=== PATIENT | male | born 1955 | race Caucasian/White ===

== ENCOUNTER 2016-11-23 16:12 | Inpatient (IN) | payer MEDICARE, MEDICAID ==
[~2016-11-23] VITALS: Ht 175.3 cm; Wt 148.7 kg
[~2016-11-23 16:12] MED LIST: ALDACTONE DPS25 MG PO; ALDACTONE50 MG PO; ALOE VESTA141 GM TP; AUGMENTIN875 MG PO; BACTROBAN22 GM TP; BENTYL-DPS10 MG PO; BENTYL10 MG PO; CEFTIN DPS500 MG PO; CEFTIN250 MG PO; COLACE-DPS100 MG PO; CYCLOBENZAPRINE10 MG PO; DULCOLAX-DPS10 MG PR; ENULOSE10 GM/15 M PO; FLEXERIL-DPS10 MG PO; FLONASE 0.05% D16 GM NS; FLONASE 50 MCG NS; HYTONE-DPS 2.5%30 GM PR; LACTULOSE PO; LASIX DPS40 MG PO; LEVAQUIN500 MG PO; LIDEX TP; LIDODERM PATC1 PATCH TP; MARYS PO; MICRO-K DPS10 MEQ PO; MILK OF MAGNESI10 ML PO; MIRALAX PACKET17 GM PO; MUCINEX600 MG PO; NILSTAT SUSP DPS5 ML PO; NYSTATIN CREAM TP; NYSTATIN CREAM15 GM TP; NYSTATIN PO; NYSTATIN1 EAC1 TP; NYSTATIN100000 UNI PO; NYSTATIN60 GM TP; ONDANSETRON HCL4 MG PO; OXY IR DPS5 MG PO; PEPCID DPS20 MG PO; POTASSIUM CHLO20 ME1 PO; PRILOSEC20 MG PO; SENOKOT8.6 MG PO; SPIRONOLACTONE PO; SURFAK DPS240 MG PO; TYLENOL DPS325 MG PO; TYLENOL EXTRA500 M1 PO; VIBRAMYCIN-DPS100 M2 PO; XANAX DPS0.5 MG PO; XANAX0.25 MG PO; XOPENEX 45 MCG IH; XOPENEX HFA15 GM IH; XOPENEX0.31 MG/3 IH; XOPENEX0.63 MG/3 IH; ZOFRAN4 MG PO; ZOVIRAX 5% TP; ZOVIRAX5 GM TP; [UNRECOGNIZED DRUG - OTHER] IH; [UNRECOGNIZED DRUG - OTHER] TP
--- NOTE | 2016-11-25 15:48 | HP ---
ADMIT: 11/23/2016 RM/LOC: 418 [facility] MR#: [id number] [id number] [place], [place] [address] [address] CE[facility] [address] [place] [address] History and Physical SEX: M AGE: 60 : 1955 DATE OF SERVICE: CHIEF COMPLAINT: Fever, aches, and back pain. HISTORY OF PRESENT ILLNESS: The patient is a 60-year-old, chronically ill gentleman who has end-stage liver disease secondary to HILLMAN, diabetes who reports to the emergency room with increasing lumbar back pain. He has this chronically, but it is much worse today. He has generalized aches and malaise. Fever up to 103. No nausea. No vomiting. No diarrhea. No new rashes. No dysuria. No change in urination at all. No cough. No new headaches. No visual changes. He really has no idea what is causing his fever at this point in time. He has had various fevers and infections in the past. Chronic UTI in the past. Does not feel like this is the case at this time. PAST MEDICAL HISTORY: 1. End-stage liver disease secondary to HILLMAN. 2. Diabetes type 2. 3. Portal hypertension secondary to cirrhosis. 4. Pancytopenia secondary to portal hypertension. 5. Chronic hypoxemia. 6. Cor pulmonale. 7. Morbid obesity. 8. Chronic low back pain on chronic narcotics. 9. Hypertension. 10.Hepatic encephalopathy. 11.Anxiety. FAMILY HISTORY: Significant for diabetes. SOCIAL HISTORY: Lives at home with his . Nonsmoker. No alcohol use. MEDICATIONS: According to list he has, he is on: 1. Colace 100 mg daily. 2. Nystatin. 3. Spironolactone 25 mg. 4. Lasix 40 mg. 5. Potassium 10 mEq daily. It does not sound like he is taking it regularly. 6. Oxycodone 10 mg five times daily. 7. Ondansetron 4 mg every 6 hours as needed. 8. Bentyl 10 mg t.i.d. as needed. 9. Xopenex 2 puffs inhaled t.i.d. as needed. 10.Xanax 0.5 mg 1/2 tablet three times daily p.r.n. 11.Lactulose p.r.n., but he is not taking it. 12.Flexeril 10 mg at bedtime as needed. REVIEW OF SYSTEMS: As per HPI. Otherwise, completely reviewed and negative. ADMIT: 11/23/2016 RM/LOC: 418 [facility] MR#: [id number] [address] [address] KY[facility] CEJA [address] [place] [address] History and Physical SEX: M AGE: 60 : 1955 PHYSICAL EXAMINATION: VITAL SIGNS: Blood pressure 109/51, heart rate 80, respiratory rate 16, temperature 100.7, and O2 saturation 99% on room air. GENERAL: He is alert and oriented x3. A little bit lethargic and slow in responses. Very appropriate. Interacts with his . HEENT: Normocephalic and atraumatic. Pupils are equal bilaterally. Slight icterus. NECK: No lymphadenopathy. Soft and supple. Trachea midline. LUNGS: Clear to auscultation bilaterally. No wheezes, rales, or rhonchi. HEART: Regular rate and rhythm. No murmurs, rubs, or gallops. ABDOMEN: Soft, nontender, and nondistended. Bowel sounds present. EXTREMITIES: No cyanosis or clubbing. He has 1+ lower extremity edema present. Lower extremities equal bilaterally. NEUROLOGIC: Has definite asterixis bilaterally. Otherwise, no neurologic deficits. SKIN: No rashes. LABORATORY AND X-RAY DATA: His procalcitonin is 0.8. His bilirubin is 4. White blood cell count is 5.0, hemoglobin 12.3, and platelets 27,000. INR 1.2. Creatinine 1.3, mag is 1.5, AST is 43, and ALT is normal. UA shows some blood 3+, otherwise negative nitrites and leukocyte esterase. Lactic acid is 1.9. Chest x-ray is reviewed, no infiltrate. Blood cultures are drawn and pending. EKG is reviewed. No acute findings. ASSESSMENT: 1. Fever. 2. End-stage liver disease. 3. Hepatic encephalopathy. 4. Chronic pain. 5. Diabetes. PLAN: At this point in time, he has really no clear foci of infection. He got a dose of Zosyn in the ER already. We will hold on further antibiotics and hold on Tylenol to see what his fever curve is. He is not hypotensive at this time. No IV fluid boluses. We are just going to monitor and see how he ADMIT: 11/23/2016 RM/LOC: 418 [facility] MR#: [id number] [address] [id number] [facility] CEJA [address] [place] [address] History and Physical SEX: M AGE: 60 : 1955 does given his history of decompensation in the past. Possibility could be that his urine, although UA overall is unremarkable, he has a history of chronic hematuria. Likely secondary to his thrombocytopenia. If he worsens at all or has repeat fever, he was given some broad-spectrum antibiotics. I think for now, we will allow him to present and see how he does. He does have this back pain which is a kind of new for him or at least different than usual for him. Pressure on, he is really only tender in the midline. No rashes anywhere suggestive of cellulitis which he has had in the past. If his pain continues in his back and in accordance to his plan, I am going to get MRI to rule out diskitis although my suspicion is quite low. We will see how he does overnight in observation. The patient is agreeable to this and very much favors being in the hospital. Hernan Steen MD/ lucina JOB #: [id number] CC: Debbie Bañuelos, Attending Physician Debbie Bañuelos, Family Physician
--- NOTE | 2016-12-01 12:10 | DS ---
ADMIT: 11/25/2016 RM/LOC: 525 [facility] MR#: [id number] [address] [address] KYAW CEJA [address] [place] [address] Discharge Summary SEX: M AGE: 60 : 1955 ADMISSION DATE: 11/25/2016 DISCHARGE DATE: 11/30/2016 DISCHARGE DIAGNOSES: 1. MRSE (methicillin-resistant Staphylococcus epidermidis) bacteremia. 2. Strep viridans UTI (urinary tract infection). 3. Fever. 4. Back pain. 5. End-stage liver disease. 6. Encephalopathy. 7. Diabetes mellitus. 8. Chronic pain. 9. Osteoarthritis of the knees. 10.Psoriasis. 11.Morbid obesity. 12.Nonalcoholic steatohepatitis. 13.Edema. 14.Chronic pancytopenia. 15.Portal hypertension secondary to cirrhosis. 16.Cor pulmonale. 17.Chronic hypoxemia. 18.Hypertension. 19.Anxiety. 20.Herpes labialis. HOSPITAL COURSE: The patient was admitted. He was initially placed on some IV antibiotics without really a known source for his infection. He then developed a left leg cellulitis as well as his blood culture came back positive for MRSE. He also had a urine culture come back positive for strep viridans. He was treated appropriately with IV antibiotics. His fever subsided. Overall, his cellulitis really resolved. He had some chronic left leg swelling that he did get some lymphedema treatment for. Overall, he was doing much better. The plan was for patient to be discharged home on IV ADMIT: 11/25/2016 RM/LOC: 525 [facility] MR#: [id number] [address] [address] [facility] CEJA [address] [place] [address] Discharge Summary SEX: M AGE: 60 : 1955 antibiotics. DISCHARGE INSTRUCTIONS: 1. Colace 100 mg p.o. b.i.d. 2. Famvir 500 mg p.o. b.i.d. 3. Lactulose 30 mg p.o. daily. 4. Lasix 40 mg p.o. daily. 5. Nystatin swish and swallow q.i.d. 6. Zovirax t.i.d. 7. Vancomycin 1.75 g IV daily x4 doses. He otherwise has multiple p.r.n.'s. He is to follow up with Dr. Debbie Bañuelos in 7-10 days. Debbie Bañuelos MD/ starlaf JOB #: [id number] CC: Debbie Bañuelos MD, Attending Physician Debbie Bañuelos MD, Family Physician
[2016-12-01] MEDS ORDERED: COLACE-DPS100 MG PO ×2 (18:18→18:23)
[2016-12-01] MEDS ORDERED: BACTROBAN OINT.22 GM TP (18:18)
[2016-12-01] MEDS ORDERED: NYSTATIN100000 UNI PO (18:19)
[2016-12-01] MEDS ORDERED: LASIX DPS40 MG PO (18:19)
[2016-12-01] MEDS ORDERED: XOPENEX HFA15 GM IH (18:21)
[2016-12-01] MEDS ORDERED: HYTONE-DPS 2.5%30 GM TP (18:21)
[2016-12-01] MEDS ORDERED: FLONASE 0.05% D16 GM NS (18:22)
[2016-12-01] MEDS ORDERED: ZOVIRAX5 GM TP (18:23)
[2016-12-01] MEDS ORDERED: VANCO 1.751.75 GM/25 IV (18:24)
[2016-12-01] MEDS ORDERED: NORMAL SALINE FL5 ML IV (18:25)
[2016-12-01] MEDS ORDERED: MARYS PO (18:25)
--- NOTE | 2016-12-03 18:03 | ER ---
ADMIT: 11/23/2016 RM/LOC: 418 [facility] MR#: [id number] [id number] [place], [place] [address] [facility] CE[facility] [address] [place] [address] Emergency Room Report SEX: M AGE: 60 : 1955 DATE: 11/23/2016 ADDENDUM: CHIEF COMPLAINT: Fever. HISTORY OF PRESENT ILLNESS: This is a 60-year-old male who comes in with a temp of a 103.2 tympanic. He has a history of multiple infections in the past including panniculitis and UTIs. COURSE IN ER: I did sepsis protocol. He has received a liter of fluids. Overall findings on labs, procalcitonin is at 0.85. Urine showed 105 red blood cells. He has AB positive blood. INR is 1.23 and PT is 12.9. CBC is normal except for a hemoglobin of 12.3 and platelets of 27. CMP is normal except for glucose of 161, inorganic phosphorus of 1.9. Total bilirubin is 4.0, albumin low at 3.0, AST is elevated at 43, his mag is low at 1.5, GFR is low at 60. Cardiac enzymes are normal. Troponin is 0.037. Lactic acid is 1.9. EKG shows sinus rhythm at a rate of 89, no ST elevation or depression. Chest x-ray is negative for any acute findings. I did speak with Dr. Steen regarding this patient. He will admit the patient just because of his history of having sepsis. CLINICAL IMPRESSION: Fever, history of sepsis. DISPOSITION: Zosyn was started here down in the emergency room. We did not do a fluid bolus due to no hypotension. No elevated lactic acid. KIRT Wells / Ezio Magana MD / modl JOB #: [id number] CC: Debbie Bañuelos MD, Attending Physician Debbie Bañuelos MD, Family Physician
[2017-01-03] MEDS ORDERED: OXY-CONTIN10 MG PO (13:53)
[2017-01-03] MEDS ORDERED: FLEXERIL DPS5 MG PO (13:54)
[2017-01-03] MEDS ORDERED: XANAX DPS0.25 MG PO (13:54)
[2017-01-03] MEDS ORDERED: ENULOSE10 GM/15 M PO (13:55)
[2017-01-03] MEDS ORDERED: ZOFRAN4 MG PO (13:55)
[2017-01-03] MEDS ORDERED: MYCOSTATIN PWD15 GM TP (13:56)
[2017-01-03] MEDS ORDERED: BENTYL-DPS10 MG PO (13:56)
[2017-01-03] MEDS ORDERED: KEFLEX-DPS500 MG PO (13:57)
[2017-01-03] MEDS ORDERED: NYSTATIN CREAM15 GM TP (13:57)
== END 2016-11-30 15:30 | disposition home or self-care (01) | DRG 690 ==
LOC: ER 16:12 → 4PCU 18:58 → 5MS 11-25 08:26 → 4PCU 11-25 08:26 → 5MS 11-27 18:00
PROVIDERS: ADMIT Internal Medicine
DX: N39.0 Urinary tract infection, site not specified (principal); D61.818 Other pancytopenia; K76.6 Portal hypertension; R78.81 Bacteremia; D69.6 Thrombocytopenia, unspecified; I27.81 Cor pulmonale (chronic); L03.116 Cellulitis of left lower limb; Z68.42 Body mass index [BMI] 45.0-49.9, adult; K72.90 Hepatic failure, unspecified without coma; E11.9 Type 2 diabetes mellitus without complications; M54.5 Low back pain; K75.81 Nonalcoholic steatohepatitis (NASH); K74.60 Unspecified cirrhosis of liver; E66.01 Morbid (severe) obesity due to excess calories; I10 Essential (primary) hypertension; G89.29 Other chronic pain; B95.4 Other streptococcus as the cause of diseases classified elsewhere; B95.7 Other staphylococcus as the cause of diseases classified elsewhere; M17.0 Bilateral primary osteoarthritis of knee; R09.02 Hypoxemia; F41.9 Anxiety disorder, unspecified; B00.1 Herpesviral vesicular dermatitis; I89.0 Lymphedema, not elsewhere classified; Z16.39 Resistance to other specified antimicrobial drug